=== PATIENT | male | born 1960 | race Two or more races ===

== ENCOUNTER 2016-08-02 23:33 | Emergency (ER) | payer OTHER ==
[~2016-08-02] VITALS: Ht 182.9 cm; Wt 75.0 kg
[~2016-08-02 23:33] MED LIST: FEXO180 PO; PROP20 PO; ZEGE20CA PO
[2016-08-02 23:38] VITALS: BP 168/98; PULSE 77; RESP 14; TEMP 99.1; O2SAT 99
--- NOTE | 2016-08-02 23:41 | PD ---
HPI Chief Complaint: Laceration/Skin Injury Time Seen by Provider: 23:41 Travel History International Travel<30 days: No Contact w/Intl Traveler<30days: No Traveled to known affect area: No History of Present Illness HPI 55-year-old right handed male presents to emergency department for evaluation of a laceration to his left third digit. Patient states that he was cutting meat with a porcelain knife when he left, placing his finger. Denies any significant pain. Denies any limitations range of motion or alterations in sensation. He is uncertain of his tetanus status. He has no other symptoms to report. [facility] Past Medical History Medical History: Denies Significant Hx Social History Alcohol Use: Yes Tobacco Use: No Substance Use: No Allergies-Medications (Allergen,Severity, Reaction): Coded Allergies: No Known Allergies (Unverified , 08/02/16) Reported Meds & Prescriptions Reported Meds & Active Scripts Active Keflex (Cephalexin) 500 Mg Cap 500 Mg PO Q6H 5 Days Reported Zegerid Otc (Omeprazole/Sodium Bicarbonate) 20 Mg Cap 20 Mg PO DAILY Ale Allergy (Fexofenadine Hydrochloride) 180 Mg Tab 180 Mg PO DAILY Inderal (Propranolol HCl) 20 Mg Tab 20 Mg PO TID Review of Systems Except as stated in HPI: all other systems reviewed are Neg Physical Exam Narrative GENERAL: Well-nourished, well-developed male patient, ambulatory and in no acute distress SKIN: Focused skin assessment warm/dry. 4 cm laceration along the lateral aspect of the left third digit. Patient has full flexion and extension of the left third digit. Sensation intact distal affected digit. Cap refill within normal limits. HEAD: Normocephalic. Atraumatic EYES: No scleral icterus. No injection or drainage. NECK: Supple, trachea midline. No JVD or lymphadenopathy. CARDIOVASCULAR: Regular rate and rhythm without murmurs, gallops, or rubs. RESPIRATORY: Breath sounds equal bilaterally. No accessory muscle use. MUSCULOSKELETAL: No cyanosis, or edema. Data Data Last Documented VS Vital Signs Date Time Temp Pulse Resp B/P Pulse Ox O2 Delivery O2 Flow Rate FiO2 08/02/16 23:38 99.1 77 14 168/98 99 Room Air Orders Lidocaine 2% Inj (Xylocaine 2% Inj) (08/02/16 23:45) [facility] Medical Decision Making Medical Screen Exam Complete: Yes Emergency Medical Condition: Yes Medical Record Reviewed: Yes Differential Diagnosis Laceration superficial versus deep versus tendon injury Narrative Course 55-year-old male presents to the emergency department for evaluation a laceration to the left third digit. Patient has no limitations in range of motion. Sensation remains intact. Patient has requested not to follow through with x-ray secondary to expense concern. The wound is irrigated and approximated without difficulty. Patient is requesting to receive his tetanus vaccination through his primary care provider because our registration is unable to provide him with an estimated cost for that at this time. The patient seems reliable and does have a primary care provider that he can follow- up with and I feel that this is reasonable. He is counseled on care and agrees to return immediately with any acute worsening symptoms. Procedures Procedure Narrative LACERATION LOCATION: Left third digit LENGTH: 4 cm NUMBER OF STITCHES/BRANDON: 7 sutures REPAIR: The area of the laceration was prepped with Betadine and sterilely draped. The laceration was infiltrated with 2% lidocaine without epinephrine. The wound was copiously irrigated and explored without evidence of foreign body , tendon injury or neurovascular injury. The wound was closed using 4-0 Prolene suture. This was a single layer repair. A sterile dressing was applied. The patient was advised to keep the dressing clean and dry. Patient tolerated the procedure well. Diagnosis Primary Impression: Laceration of finger of left hand Qualified Code: S61.219A - Laceration of finger of left hand, initial encounter Referrals: Hand Surgeon Primary Care Physician Patient Instructions: Finger Laceration (ED), General Instructions Additional Instructions: Keep the area clean and dry Elevate to reduce pain and swelling Wear the brace to limit mobility and tail sutures are removed Sutures are to be removed in 7-10 days. This can be done emergency department by your primary care provider's office Tetanus vaccination is recommended Tylenol and/or ibuprofen as structural effect as needed for pain Return immediately with any acute worsening of symptoms Med/Other Pt SpecificInfo: Prescription(s) given Scripts Cephalexin (Keflex)500 Mg [id number] Mg PO Q6H 5 Days Ref 0 Prov:Madalyn Peralta 08/03/16 Disposition: 01 DISCHARGE HOME Condition: Stable Madalyn Peralta August 02, 2016 23:41
[2016-08-02] MEDS ORDERED: LIDOCAINE HCL 2% 20 ML VIAL INFIL ONE (23:45)
[2016-08-03] MEDS ORDERED: CEPH-460 PO (00:29)
== END 2016-08-03 00:44 | disposition home or self-care (01) ==
LOC: NEPK 23:33
DX: S61.213A Laceration without foreign body of left middle finger without damage to nail, initial encounter (principal); W26.0XXA Contact with knife, initial encounter; Y93.G3 Activity, cooking and baking; Y92.000 Kitchen of unspecified non-institutional (private) residence as the place of occurrence of the external cause
CPT/HCPCS: 12002

== ENCOUNTER 2017-08-05 07:46 | Day surgery (SDC) | payer OTHER ==
[~2017-08-05] VITALS: Ht 185.4 cm; Wt 88.4 kg
[~2017-08-05 07:46] MED LIST changes: +CEPH-460 PO
[2017-08-05] MEDS ORDERED: IOHEXOL 350 MG/ML 50 ML BTL (for Cath Lab) OTHER ONE (07:47)
[2017-08-05] MEDS ORDERED: DICY10 PO (08:41)
[2017-08-05] MEDS ORDERED: FLUT1SPR5 EACH NARE (08:41)
[2017-08-05] MEDS ORDERED: ZINC50TA2 PO (08:41)
[2017-08-05] MEDS ORDERED: CETI10 (08:41)
[2017-08-05] MEDS ORDERED: TIRO25CA PO (08:41)
[2017-08-05] MEDS ORDERED: ZANT150T2 PO (08:41)
[2017-08-05] MEDS ORDERED: [UNRECOGNIZED DRUG - OTHER] (08:41)
[2017-08-05] MEDS ORDERED: MAGN400C2 (08:41)
[2017-08-05] MEDS ORDERED: ALPR1TAB3 PO (08:41)
[2017-08-05] MEDS ORDERED: VITA200C3 PO (08:41)
[2017-08-05] MEDS ORDERED: MOME16.7 INH (08:41)
[2017-08-05] MEDS ORDERED: [UNRECOGNIZED DRUG - CODE] (08:41)
[2017-08-05] MEDS ORDERED: ALBUAER3 INH (08:41)
[2017-08-05] MEDS ORDERED: CHOL5000 PO (08:41)
[2017-08-05] MEDS ORDERED: DULO1CAP2 PO (08:41)
[2017-08-05] MEDS ORDERED: PROP20TA3 PO (08:41)
[2017-08-05 08:43] VITALS: BP 158/91; PULSE 65; RESP 18; TEMP 98.2; O2SAT 96
[2017-08-05] MEDS ORDERED: HEPARIN SODIUM - IV 10,000 UNITS/10 ML VIAL ONE (10:32)
[2017-08-05] MEDS ORDERED: NITROGLYCERIN INJ 5 ML ONE (10:32)
[2017-08-05] MEDS ORDERED: VERAPAMIL HCL 5 MG/2 ML VIAL ONE (10:32)
[2017-08-05] MEDS ORDERED: HEPARIN-NS/PF FLUSH BAG 2,000 ML IV FLUSH ONE (10:32)
[2017-08-05] MEDS ORDERED: MIDAZOLAM HCL 2 MG/2 ML VIAL ONE (10:42)
[2017-08-05] MEDS ORDERED: MISC INFORMATION XX ONE (11:30)
[2017-08-05] MEDS ORDERED: ASPI81TA23 PO (11:31)
[2017-08-05] MEDS ORDERED: ATOR40TA16 PO (11:31)
--- NOTE | 2017-08-05 11:38 | CATHPROC ---
[facility] HIS Report Study Information Study Number Admission Scheduled Start Study Start [id number] Aug 05 2017 7:46AM 08/05/2017 Aug 05 2017 8:36AM [facility] Cardiac Catheterization Admit Source Facility Department Other [facility] - Executive Chairman Of The Board Physician and Clinical Staff Initial Harley Rossi Asphalt Mixing Machine Operator Gavino RN, Tab Recorder Hilary Gutierrez,RT(R) (BS) Scrub Jamee Calle ,RT(R) Procedures Performed Procedure Location (Site) Vessel Name Coronary Angiograms LCA Left Coronary Coronary Angiograms RCA Right Coronary Wire insertion Radial (right) Radial Art. Equipment Time Printer Slotter Operator Description Size Mfg Part Number Used/Scraped TRANSDUCER, TRUWAVE [id number] 08:38 TAMAYO SPARROW * Used W/STOCKCOCK *[id number] *[id number] *[id number] 08:38 [employer] INDUSTRIES PACK, CCL CUSTOM * Used *[id number] 08:38 Erenis SUPPORT, ARTERIAL ADULT [id number] *[id number] Used [id number] 08:38 [employer] PACER PEN, SKIN DUAL W/ RULER * Used *[id number] BAND, RADIAL COMPRESSION TR [id number] 11:26 [employer] MEDICAL 29CM Used LARGE 29 *[id number] SHEATH, FR6 RADIAL PRELUDE 08:38 Local [employer]utation FR 6 [id number] Used EASE 11CM [id number] 08:38 [employer] WIRE, EXCHANGE 260CM 3MMJ 260CM Used *[id number] 08:38 [employer] OMNIPAQUE, 350 MG, 150ML 150ML [id number] Used [id number] 08:38 [employer] MEDICAL BLANKET,WARM AIR CCL * Used *[id number] History: Current Medications Medication Dosage/Unit Route Frequency Last Date/Time Taken Beta Kimberli History: Allergies Allergy Reaction No Known Allergies History: Risk Factors Family History of Hypertension Dyslipidemia Previous DC Previous Heart Failure Premature CAD Yes Yes Yes No No Prior Valve Prior PCI Prior CABG Surgery No No No Cerebrovascular Peripheral Artery Chronic Lung On Dialysis Diabetes Disease Disease Disease No No No No No History: Stress Tests Stress or Imaging Studies Performed Yes Standard Exercise Stress Test No Stress Echo No Stress Test SPECT Stress Test SPECT Result Stress Test SPECT Ischemia Risk/Extent Yes Positive Intermediate Stress Test CMR No Cardiac CTA Coronary Calcium Score No No History: Other Current Smoker Method Quit Packs a Day Years Used Pack Years No Cigarettes 1 Years Ago 1 10 10 Labs Hgb (g/dl) Hct (%) WBC (l/cumm) Platelets (thousands) 11.60-17.00 35.00-51.00 4.00-11.00 150.00-450.00 14.9 44.9 5.3 173 Glucose (mg/dl) BUN (mg/dl) Creatinine (mg/dl) BUN:Creatinine (1:x) 74.00-106.00 7.00-18.00 0.50-1.30 10.00-20.00 81 11 0.9 12.2 Na (meq/l) K (meq/l) 136.00-145.00 3.50-5.10 140 4.6 INR (PTT:PT) 0.90-1.10 1 CPK-MB (ng/ML) 0.50-3.60 Not Drawn Medication Medication Total Dose (Bolus/Oral) Medication Total Dosage/Unit 1% XYLOCAINE 1 mL FENTANYL 50 mcg HEPARIN 3000 units NTG (IC) 200 mcg VERSED 2 mg Medications (Bolus/Oral) Medication Time Given Dosage/Unit Administered By Reason VERSED 08/05/2017 10:59:28 AM 2 mg Tab Mancia RN 2 mg VERSED given in lab by Tab Mancia RN in Left Antecubital via Peripheral IV. FENTANYL 08/05/2017 11:00:38 AM 50 mcg Tab Mancia RN 50 mcg FENTANYL given in lab by Tab Mancia RN in Left Antecubital via Peripheral IV. 1% XYLOCAINE 08/05/2017 11:05:01 AM 1 mL Harley Montenegro 1 mL 1% XYLOCAINE given in lab by Harley Montenegro in Right Radial via Subcutaneous. HEPARIN 08/05/2017 11:06:18 AM 3000 units Tab Mancia RN 3000 units HEPARIN given in lab by Tab Mancia RN in Left Antecubital via Peripheral IV. NTG (IC) 08/05/2017 11:06:30 AM 200 mcg Harley Montenegro 200 mcg NTG (IC) given in lab by Harley Montenegro in Right Radial via Intra-arterial. Medication (Drip) Medication Time Given Dosage/Unit Concentration/Unit Diluent (ml) Solution IV Solutions 08/05/2017 10:35:33 AM 0 mL (IV) 500 NaCl .9 IV Solutions given in lab by Tab Mancia RN in Left Antecubital via Peripheral IV. Pump/Drip Flow = 30 ml/hr using NaCl .9. Initial Case Assessment Cardiovascular HR Rhythm NIBP Chest Pain 60 reg 117/80 0 Edema Present Skin color Skin None Normal Warm Dry Circulatory - Right Pulses Dorsalis Pedis Femoral Radial 2 2 1 Scale (0,1,2,3,4,d) Circulatory - Left Pulses Dorsalis Pedis Femoral Radial 2 2 Scale (0,1,2,3,4,d) Circulatory - Lower Extremities Color Lower Right Color Lower Left Normal Normal Neurological State Oriented to time-place- Alert Moves all extremities person Respiration - General Respiration Rate SpO2 (%) (B/min) 10 94 Chronological Log Time Study Chronological Log 10:35:12 Patient arrived via Bed. 10:35:13 Patient Name, D.O.B, / Armband Verified By R.N. 10:35:14 Consent signed by the physician and the patient and verified by the Executive Chairman Of The Board staff. 10:35:14 Pre-op and post- op instructions given; patient acknowledges understanding of instructions. 10:35:15 Verbal Stimulation=2 Physical Stimulation=2 Airway=2 Respiration=2 TOTAL=8. (0=absent, 1=li mited, 2=present) 10:35:16 Presedation assessment performed by Executive Chairman Of The Board RN. 10:35:20 Patient has been NPO for More than 6Hrs. 10:35:26 Allens test performed on the right radial and ulnar artery. 10:35:29 Skin Breakdown none per pt 10:35:29 Patient Warmer Placed on the Table. 10:35:31 Edmar Prominences Protected 10:35:32 A # 20 IV was noted in the Antecubital (left). Grade = 0 IV Solutions given in lab by Tab Mancia RN in Left Antecubital via Peripheral IV. Pump/Drip F low = 30 ml/hr using NaCl 10:35:33 .9. 10:35:33 History and physical on the chart or being dictated. Assessment: Initial Case, HR=60 BPM, Rhythm=reg, YBAY=857/80 mmhg, Chest Pain=0, Edema=None, [place]=Normal, Skin = Warm, Dry Right Pulses: Joe Ped=2, Femoral=2, Radial=1 Left Pulses: Joe Ped=2, Femoral=2 10:35:34 Lower Right Extremities: Color=Normal Lower Left Extremities: Color=Normal Neurological: State=Alert, Ox3, SALAZAR Respiration: Resp=10 B/min, SpO2=94 % Vitals capture started with the following parameters, Patient=Adult, Interval=5 min, Initial Pr kbpyly=102 mmHg, 10:42:04 Deflation Rate=5 mmHg, Cuff placed on Unknown 10:43:11 HR=60 bpm, ZPFD=291/80 mmhg, SpO2=99.0 %, Resp=6 B/min, Pain=0, Maverick=10, [place]=2 10:45:30 Reference ECG taken 10:47:37 HR=63 bpm, OICV=379/84 mmhg, SpO2=94.0 %, Resp=13 B/min, Pain=0, Maverick=10, [place]=2 10:52:40 HR=57 bpm, PWMD=736/85 mmhg, Resp=19 B/min, Pain=0, Maverick=10, [place]=2 10:53:45 Pressure channel 1 zeroed. 10:54:31 MD paged 10:57:39 HR=59 bpm, FUIF=153/89 mmhg, Resp=28 B/min, Pain=0, Maverick=10, [place]=2 10:58:29 MD arrived. 10:59:28 2 mg VERSED given in lab by Tab Mancia RN in Left Antecubital via Peripheral IV. 11:00:38 50 mcg FENTANYL given in lab by Tab Mancia RN in Left Antecubital via Peripheral IV. 11:02:42 HR=67 bpm, STXW=792/72 mmhg, SpO2=96.0 %, Resp=13 B/min, Pain=0, Maverick=10, [place]=2 Time Out. Correct patient, correct procedure, correct physician, power injector not loaded with contrast with surgical 11:04:47 team present. Time Out Concurred by MD and individual staff in procedure. 11:04:56 Case Start 11:05:01 1 mL 1% XYLOCAINE given in lab by Harley Montenegro in Right Radial via Subcutaneous. 11:05:38 Access site was right Radial Artery. A SHEATH, FR6 RADIAL PRELUDE EASE 11CM FR 6 was advanced into the Radial (right) using the Perc utaneous 11:05:48 technique. 11:06:01 In the Radial (right) the SHEATH, FR6 RADIAL PRELUDE EASE 11CM FR [address] by Harley Montenegro. 11:06:18 3000 units HEPARIN given in lab by Tab Mancia RN in Left Antecubital via Peripheral IV. 11:06:30 200 mcg NTG (IC) given in lab by Harley Montenegro in Right Radial via Intra-arterial. A JR 5.0 INFINITI CATHETER FR 5 was advanced over a wire. OMNIPAQUE, 350 MG, 150ML 150ML was us ed for 11:07:00 injections. 11:07:41 HR=68 bpm, SFXE=862/72 mmhg, Resp=24 B/min, Pain=0, Maverick=10, [place]=2 11:07:49 The RCA was injected and visualized at various angles. OMNIPAQUE, 350 MG, 150ML 150ML used . After removing the current catheter a JL 3.5 INFINITI CATHETER FR 5 was advanced over a WIRE, E XCHANGE 260CM 11:09:00 3MMJ 260CM. Recorded Pressure: Ao, HR=64, Condition=Condition 1 11:10:34 (Aorta) Ao 99/62/78 11:11:23 The LCA was injected and visualized at various angles. OMNIPAQUE, 350 MG, 150ML 150ML used . 11:12:42 HR=64 bpm, PMKW=064/69 mmhg, SpO2=95.0 %, Resp=12 B/min, Pain=0, Maverick=10, [place]=2 11:18:04 A WIRE, EXCHANGE 260CM 3MMJ 260CM was inserted via Radial (right). 11:18:20 HR=69 bpm, HCVM=611/71 mmhg, SpO2=98.0 %, Resp=15 B/min, Pain=0, Maverick=10, [place]=2 11:19:07 Catheter was removed 11:19:10 Wire removed 11:22:36 SM reviewing films with CV surgeon SK 11:22:42 HR=60 bpm, FVDT=644/70 mmhg, Resp=8 B/min, Pain=0, Maverick=10, [place]=2 11:25:32 Case End 11:26:11 Catheter(s) removed without difficulty 11:26:20 No case complications noted. 11:26:23 Bedside Report will be given. 11:27:41 HR=64 bpm, KMQQ=507/76 mmhg, SpO2=98.0 %, Resp=21 B/min, Pain=0, Maverick=10, [place]=2 11:28:15 DOCU called. Spoke to Yajaira. Radial Compression Device Used. 10 mLs of air placed in BAND, RADIAL COMPRESSION TR LARGE 29 2 9CM. Affected 11:28:53 hand 98 % O2 saturation. 11:32:31 Vitals capture stopped. 11:37:53 Patient moved to stretcher End Study - Contrast Media Used In Study Contrast Total Opened (mL) Total Used (mL) Total Wasted (mL) Omnipaque 30 30 0 End Study - Maximum Contrast Load Max Contrast Load (mL) 491.2 End Study - Radiation Exposure Fluoro Time (minutes) 1.6 End Study - Sheaths Sheaths Pulled By Sheath Hold Time (min) Jamee Calle End Study - Patient Disposition Complications Transferred To Interventional Outcome No Executive Chairman Of The Board Holding No attempt made
--- NOTE | 2017-08-05 12:10 | MA ---
cc: Harley Montenegro MD DATE: 08/05/2017 INDICATIONS: Chest pain, abnormal stress test. PROCEDURE PERFORMED: 1. Fluoroscopy with interpretation. 2. Coronary angiography. METHOD: The risks, benefits and alternatives discussed with the patient. The patient understood and consented to the procedure. PROCEDURE: The patient brought into the catheterization lab and placed on the catheterization tale. The right wrist was prepped and draped in the usual sterile fashion. The right wrist was anesthetized with 2% lidocaine. The right radial artery was cannulated and a 6-Turkmen 11 cm sheath was placed without difficulty. CORONARY ANGIOGRAPHY: 1. Left main coronary is angiographically normal. 2. Left anterior descending coronary artery in the proximal segment has mild luminal irregularities. There is a small first diagonal branch which has 80% stenosis, but is a 1 mm caliber size. The mid left anterior descending coronary just prior to the bifurcation of a moderate sized second diagonal branch has a 75% stenosis in it. Diagonal branch is free of significant disease. The distal left anterior descending coronary also has a lesion in it at the bifurcation just distal to the diagonal branches, although it gives rise to septal perforators, it is not a very large caliber size with a stenosis of 70%. 3. Left circumflex gives rise to an obtuse marginal branch with a smaller caliber sized vessel in the proximal circumflex, 90% stenosis. 4. Right coronary has diffuse disease in the proximal and the mid to distal segment of 90%. Posterior descending branch has moderate diffuse disease. Posterolateral branch has minor luminal irregularities. CONCLUSIONS: Multivessel coronary disease. PLAN: I actually discussed the case with Dr. Horta of cardiothoracic surgery to see if both the distal left anterior descending and obtuse marginal branches are bypassable. Dr. Horta felt confident that he could potentially graft both vessels. Given that, I think we could get a better full revascularization with consideration for bypass surgery versus multivessel PCI. At this point, we will stop, put a radial band on and anticipate he will go home today and schedule potential elective bypass surgery as an outpatient. Harley Montenegro MD LON/DL , 11:34 AM , 12:09 PM
--- NOTE | 2017-08-05 16:38 | MB ---
cc: Joanna Shearer Jacqueline R ARNP DATE: 08/05/2017 DATE OF : 1960 HISTORY OF PRESENT ILLNESS: A 56-year-old male with history of coronary artery disease, underwent heart catheterization 8 years ago, found to have a 50% stenosis in the main artery, had followup that was done by Dr. Castillo, had followup with Dr. Montenegro because of his family history, his mother had stents in the past. He was followed in the past by also Dr. Castillo. He has failed statin therapy due to severe myalgias. He underwent nuclear stress testing which showed greater than 2 mm horizontal downsloping inferior leads which would be a positive stress test, also moderate-sized reversible perfusion in the mid-basilar inferior wall. EF was 56% on that stress test. He underwent cardiac catheterization with Dr. Montenegro which showed an EF of 60%. The proximal LAD was 30%, the mid-distal 75%, the diagonal 20%, the circ was 20%, the OM 90% and the RCA 80%. We were consulted to evaluate for coronary artery bypass grafting. PAST MEDICAL HISTORY: Includes coronary artery disease, hyperlipidemia with statin intolerance, palpitations, hypertension, irritable bowel syndrome, benign prostatic hypertrophy. PAST SURGICAL HISTORY: Colonoscopy, hemorrhoidectomy. HOME MEDICATIONS: Xanax, Asmanex, Bentyl, Zyrtec, Prozac, Flonase and Inderal and Zantac. HABITS: Prior tobacco abuse. FAMILY HISTORY: Mother had history of coronary artery disease with stents. Father from pancreatic cancer. SOCIAL HISTORY: The patient is , no children. Smoked for 15 years, quit 5 years ago. Owns a food store. Originally from [place]. REVIEW OF SYSTEMS: GENERAL: No night sweats, fever, heat or cold intolerance. SKIN: No psoriasis, itching or hives. HEENT: No blurred vision, hearing loss. RESPIRATORY: He has had some pinching type discomfort in his chest that was more like indigestion. GASTROINTESTINAL: He does suffer from irritable bowel syndrome. GENITOURINARY: No burning, frequency, urgency. PLATE MILL MILL HAND: No history of TIA, CVA or seizure disorder. ENDOCRINOLOGY: No diabetes and no hypothyroidism. PHYSICAL EXAMINATION: VITAL SIGNS: Blood pressure 150/90, heart rate is 60, temperature T-max 98.2, on room air 95%. GENERAL: Awake, alert, in no acute distress. HEENT: Head is normocephalic, atraumatic. Pupils equal and reactive. Oral mucosa pink, moist. NECK: Supple. No JVD. HEART: Sounds S1, S2. Regular rate and rhythm. No audible rubs, murmurs, gallops. LUNGS: Clear to auscultation. No wheezes, rales or rhonchi. ABDOMEN: Soft, nontender, no masses or organomegaly. RECENT LABORATORY DATA: Shows hemoglobin of 14, hematocrit of 44, white cell count of 5.3, platelet count of 173. Sodium 140, potassium 4.6, BUN of 11 and a creatinine of 0.9. INR 1.04. IMPRESSION: This is a 56-year-old male with multivessel disease. PLAN: At this time, the patient wanted to speak further with Dr. Montenegro in regards to possible stenting and also speaking to Dr. Castillo, his prior pack room operator. At this time we have given the patient our card that he is very welcome to call us should he consider undergoing coronary artery bypass grafting and we will work up at that time. The procedure, alternatives and risks have been discussed with the patient. STS has not been done at this time, unless the patient decides to have surgery. We will follow accordingly. Joanna Shearer [facility] MD TERA [place]/IVAN , 04:05 PM , 04:37 PM
--- NOTE | 2017-08-07 11:55 | EKG ---
Date Performed: 08/05/2017 Time Performed: 08:45:26 PTAGE: 56 years EKG: Sinus rhythm . Normal ECG NO PREVIOUS TRACING DOCTOR: Harley Montenegro Interpretating Date/Time 08/07/2017 11:55:01
== END 2017-08-05 15:12 | disposition home or self-care (01) ==
LOC: HDOC 07:46 → HDIC 07:47 → HDOC 15:12
PROVIDERS: ATTEND Internal Medicine
DX: I25.10 Atherosclerotic heart disease of native coronary artery without angina pectoris (principal); R94.39 Abnormal result of other cardiovascular function study; I10 Essential (primary) hypertension; E78.5 Hyperlipidemia, unspecified
CPT/HCPCS: 86850; 86900; 86901; 93005; 93454; 99152; 99153; C1769; C1893; J1644; J2250; J3010; Q9967

== ENCOUNTER 2017-08-09 09:13 | Day surgery (SDC) | payer OTHER ==
[~2017-08-09] VITALS: Ht 185.4 cm; Wt 82.1 kg
[2017-08-09] VITALS (9 sets, daily range): BP systolic 118–131; BP diastolic 81–85; PULSE 60–79; RESP 14–20; TEMP 96.8–98.2; O2SAT 98–100
[~2017-08-09 09:13] MED LIST changes: +ALBUAER3 INH; +ALPR1TAB3 PO; +ASPI81TA23 PO; +ATOR40TA16 PO; -CEPH-460 PO; +CETI10; +CHOL5000 PO; +DICY10 PO; +DULO1CAP2 PO; -FEXO180 PO; +FLUT1SPR5 EACH NARE; +MAGN400C2; +MOME16.7 INH; -PROP20 PO; +PROP20TA3 PO; +TIRO25CA PO; +VITA200C3 PO; +ZANT150T2 PO; -ZEGE20CA PO; +ZINC50TA2 PO; +[UNRECOGNIZED DRUG - CODE]; +[UNRECOGNIZED DRUG - OTHER]
[2017-08-09] MEDS ORDERED: IOHEXOL 350 MG/ML 50 ML BTL (for Cath Lab) OTHER ONE (09:14)
[2017-08-09] MEDS ORDERED: IOHEXOL 350 MG/ML 100 ML BTL (for Cath Lab) OTHER ONE (09:14)
[2017-08-09] MEDS ORDERED: NS 1000P @30 MLS/HR (KVO) IV SCH (10:00)
[2017-08-09] MEDS ORDERED: FAMO1TAB73 PO (10:50)
[2017-08-09] MEDS ORDERED: NITR0.4S SL (10:50)
[2017-08-09] MEDS ORDERED: MIDAZOLAM HCL 2 MG/2 ML VIAL ONE ×3 (11:42→12:19)
[2017-08-09] MEDS ORDERED: BIVALIRUDIN 250 MG VIAL ONE (11:49)
[2017-08-09] MEDS ORDERED: NITROGLYCERIN INJ 10 ML ONE (12:43)
[2017-08-09] MEDS ORDERED: BIVALIRUDIN INJ 250 MG in SODIUM CHLORIDE 0.9% INJ 50 ML IV SCH (12:47)
[2017-08-09] MEDS ORDERED: SODIUM CHLOR 0.9% 1000 ML INJ 1,000 ML IV SCH (12:47)
[2017-08-09] MEDS ORDERED: ATOR40TA16 PO (12:52)
[2017-08-09] MEDS ORDERED: PLAV75TA29 PO (12:53)
[2017-08-09] MEDS ORDERED: ASPI81TA23 PO (12:53)
[2017-08-09] MEDS ORDERED: ISOS30TA3 PO (12:54)
[2017-08-09] MEDS ORDERED: oxyCODONE/ACETAMINOPHEN 5 MG/325 MG TAB PO PRN (13:00)
[2017-08-09] MEDS ORDERED: CLOPIDOGREL 300 MG TAB PO ONE (13:00)
[2017-08-09] MEDS ORDERED: ALPRAZolam 1 MG TAB PO PRN (13:00)
[2017-08-09] MEDS ORDERED: LIDOCAINE 2% JELLY 30 ML TUBE TOP PRN (13:00)
[2017-08-09] MEDS ORDERED: BACITRACIN OINT 0.9 GM PKT TOP ONE (13:00)
[2017-08-09] MEDS ORDERED: MISC INFORMATION XX ONE (13:00)
[2017-08-09] MEDS ORDERED: ACETAMINOPHEN 325 MG TAB PO PRN (13:00)
--- NOTE | 2017-08-09 13:05 | CATHPROC ---
[employer] HIS Report Study Information Study Number Admission Scheduled Start Study Start [id number] Aug 09 2017 9:13AM 08/09/2017 Aug 09 2017 10:32AM [place] Service Cardiac Catheterization Admit Source Facility Department Other [facility] - Surveying Crew Stake Runner Physician and Clinical Staff Initial Harley Rossi Tile Edger Regina Reyes,HEENA Tile Edger Radha Waterman,HEENA Recorder Esteban Ruelas,HEENA Recorder Sonal Baer,RT(R) Scrub Kvng, Sofi,STAFF ATTORNEY TECH2 Procedures Performed Procedure Location (Site) Vessel Name Coronary Angiograms LCA Left Coronary Coronary Angiograms RCA Right Coronary Drug Eluting Inflatio LAD Mid Left Coronary Drug Eluting Inflatio RCA Dist Right Coronary Drug Eluting Inflatio RCA Prox Right Coronary L Heart Cath PTCA LAD Mid Left Coronary Wire insertion Radial (right) Radial Art. Equipment Time Panel Gluer Description Size Mfg Part Number Used/Scraped COPILOT VALVE, BLEEDBACK [id number] 11:31 [employer] Used CONTROL *[id number] TRANSDUCER, TRUWAVE [id number] 11:31 [employer] * Used W/STOCKCOCK *[id number] BALLOON, 2.25 20MM GA 12:40 [employer] 2.25 20MM Used QUANTUM APEX MR *[id number] [phone] *[id number] [phone] *[id number] 11:31 [employer] PACK, CCL CUSTOM * Used *[id number] 11:31 [employer]ge PACER PEN, SKIN DUAL W/ RULER * Used *[id number] 12:30 [employer] BALLOON, 2.0 X 20MM EUPHORA 20MM Used *[id number] 12:28 [employer] STENT, 2.5 38MM OCTAVIA 2.5 38MM [id number] Used [id number] 12:08 [employer] STENT, 3.0 26MM OCTAVIA 3.0 26MM Used *[id number] 12:11 [employer] STENT, 3.0 34MM OCTAVIA 3.0 34MM [id number] Used 12:19 [employer] STENT, 3.0 34MM OCTAVIA 3.0 34MM [id number] Used [id number] 12:12 [employer] 30 JUVENAL INDEFLATOR Used *[id number] BAND, RADIAL COMPRESSION TR [id number] 12:47 [employer] MEDICAL 29CM Used LARGE 29 *[id number] 11:31 [employer] MEDICAL SHEATH, FR6.5 PRELUDE 11CM FR 6.5 038ACT Used *[id number] 11:31 [employer] MEDICAL WIRE, 3MMJ .035 180CM 180CM Used *[id number] 11:31 NAMIC MANIFOLD, 4 PORT * Used *[id number] 11:31 [employer] OMNIPAQUE, 350 MG, 150ML 150ML [id number] Used [id number] 11:31 [facility] BLANKET,WARM AIR CCL * Used *[id number] WIRE, RUNTHROUGH NS FLOPPY [id number] 12:06 [employer]car.[employer] 180CM Used .014 180CM *[id number] Equipment Model, Serial, Lot Number and Expiration Data Description Model Number Serial Number Lot Number Expiration Date BALLOON, 2.0 X 20MM EUPHORA [id number] 12-10-2018 STENT, 2.5 38MM OCTAVIA [id number] 05-09-2019 STENT, 3.0 26MM OCTAVIA [id number] 04-28-2019 STENT, 3.0 34MM OCTAVIA [id number] 04-22-2019 STENT, 3.0 34MM OCTAVIA [id number] 04-18-2019 History: Current Medications Medication Dosage/Unit Route Frequency Last Date/Time Taken Beta Kimberli ASA History: Allergies Allergy Reaction No Known Allergies History: Risk Factors Family History of Hypertension Dyslipidemia Previous OR Previous Heart Failure Premature CAD Yes Yes Yes No No Prior Valve Prior PCI Prior CABG Surgery No No No Cerebrovascular Peripheral Artery Chronic Lung On Dialysis Diabetes Disease Disease Disease No No No No No History: Symptoms/Diagnosis Selection Items Chest pain History: Stress Tests Stress or Imaging Studies Performed Yes Standard Exercise Stress Test No Stress Echo No Stress Test SPECT Stress Test SPECT Result Stress Test SPECT Ischemia Risk/Extent Yes Positive Intermediate Stress Test CMR No Cardiac CTA Coronary Calcium Score No No History: Other Current Smoker Method Quit Packs a Day Years Used Pack Years No Cigarettes 1 Years Ago 1 10 10 Labs Hgb (g/dl) Hct (%) RBC (MIL/MM3) WBC (l/cumm) Platelets (thousands) 11.60-17.00 35.00-51.00 4.00-5.90 4.00-11.00 150.00-450.00 14.9 44.9 5.1 5.3 173 Glucose (mg/dl) BUN (mg/dl) Creatinine (mg/dl) BUN:Creatinine (1:x) 74.00-106.00 7.00-18.00 0.50-1.30 10.00-20.00 81 11 0.9 12.2 Na (meq/l) K (meq/l) 136.00-145.00 3.50-5.10 140 4.6 INR (PTT:PT) 0.90-1.10 1 CPK-MB (ng/ML) 0.50-3.60 Not Drawn Medication Medication Total Dose (Bolus/Oral) Medication Total Dosage/Unit 1% XYLOCAINE 5 mL ANGIOMAX BOLUS 13 mL FENTANYL 125 mcg NTG (IC) 700 mcg OXYGEN 2 l/min PLAVIX 600 mg VERSED 5 mg Medications (Bolus/Oral) Medication Time Given Dosage/Unit Administered By Reason VERSED 08/09/2017 11:50:50 AM 2 mg Amy, Regina 2 mg VERSED given in lab by Regina Reyes RN in Left Antecubital via Peripheral IV. Ordered by Harley Jose. FENTANYL 08/09/2017 11:51:18 AM 50 mcg Ankush Reyeson 50 mcg FENTANYL given in lab by Regina Reyes RN in Left Antecubital via Peripheral IV. Ordered by Harley Montenegro. 1% XYLOCAINE 08/09/2017 11:59:15 AM 5 mL Harley Montenegro 5 mL 1% XYLOCAINE given in lab by Harley Montenegro in Right Radial via Subcutaneous. VERSED 08/09/2017 12:00:50 PM 2 mg Hesher, Regina 2 mg VERSED given in lab by Regina Reyes RN in Left Antecubital via Peripheral IV. Ordered by Harley Jose. NTG (IC) 08/09/2017 12:01:26 PM 200 mcg Harley Montenegro 200 mcg NTG (IC) given in lab by Harley Montenegro in Right Radial via Intra-coronary. FENTANYL 08/09/2017 12:01:27 PM 50 mcg Amy, Regina 50 mcg FENTANYL given in lab by Regina Reyes RN in Left Antecubital via Peripheral IV. Ordered by Harley Montenegro. ANGIOMAX BOLUS 08/09/2017 12:03:51 PM 13 mL Regina Reyes 13 mL ANGIOMAX BOLUS given in lab by Regina Reyes RN in Left Antecubital via Peripheral IV. Ordere d by Harley Montenegro. OXYGEN 08/09/2017 12:04:10 PM 2 l/min Regina Reyes 2 l/min OXYGEN given in lab by Regina Reyes RN via Nasal. Ordered by Harley Montenegro. VERSED 08/09/2017 12:20:55 PM 1 mg Regina Reyes 1 mg VERSED given in lab by Regina Reyes RN in Left Antecubital via Peripheral IV. Ordered by Harley Jose. FENTANYL 08/09/2017 12:21:30 PM 25 mcg Regina Reyes 25 mcg FENTANYL given in lab by Regina Reyes RN in Left Antecubital via Peripheral IV. Ordered by Harley Montenegro. NTG (IC) 08/09/2017 12:21:56 PM 200 mcg Harley Montenegro 200 mcg NTG (IC) given in lab by Harley Montenegro in Right Radial via Intra-coronary. Ordered by Harley Montenegro. NTG (IC) 08/09/2017 12:36:32 PM 100 mcg Harley Montenegro 100 mcg NTG (IC) given in lab by Harley Montenegro in Right Radial via Intra-coronary. Ordered by Harley Montenegro. NTG (IC) 08/09/2017 12:42:40 PM 200 mcg Harley Montenegro 200 mcg NTG (IC) given in lab by Harley Montenegro in Right Radial via Intra-coronary. Ordered by Harley Montenegro. PLAVIX 08/09/2017 12:52:04 PM 600 mg Radha Waterman 600 mg PLAVIX given in lab by Radha Waterman, HEENA via Oral. Ordered by Harley Montenegro. Medication (Drip) Medication Time Given Dosage/Unit Concentration/Unit Diluent (ml) Solution ANGIOMAX DRIP 08/09/2017 12:04:15 PM 1.749 mg/kg/hr 250 mg 50 NaCl .9 1.749 mg/kg/hr ANGIOMAX DRIP given in lab by Regina Reyes RN in Left Antecubital via Peripheral IV . Pump/Drip Flow = 31 ml/hr using NaCl .9 with a concentration of 250 mg in 50 ml. Ordered by Harley Montenegro. Initial Case Assessment Cardiovascular HR Rhythm NIBP Chest Pain 62 SR 130/87 0 Edema Present Skin color Skin None Normal Warm Dry Circulatory - Right Pulses Dorsalis Pedis Femoral 2 2 Scale (0,1,2,3,4,d) Circulatory - Left Pulses Dorsalis Pedis Femoral 2 2 Scale (0,1,2,3,4,d) Neurological State Oriented to time-place- Alert Moves all extremities person Respiration - General Respiration Rate SpO2 (%) (B/min) 8 100 Chronological Log Time Study Chronological Log 11:28:59 Patient arrived via Bed. 11:29:00 Patient Name, D.O.B, / Armband Verified By R.N. 11:29:06 Patient has been NPO for More than 6Hrs. 11:29:08 Skin Breakdown-, none per pt 11:29:16 Patient Warmer Placed on the Table. 11:34:58 Reference ECG taken Vitals capture started with the following parameters, Patient=Adult, Interval=5 min, Initial Pr tscora=758 mmHg, 11:35:48 Deflation Rate=5 mmHg, Cuff placed on Left Arm 11:36:49 HR=63 bpm, WUGR=951/83 mmhg, SpO2=99.0 %, Resp=9 B/min, Pain=0, [place]=10, [place]=2 11:38:59 [place] Prominences Protected Assessment: Initial Case, HR=62 BPM, Rhythm=SR, EQJG=716/87 mmhg, Chest Pain=0, Edema=None, Col or=Normal, Skin = Warm, Dry Right Pulses: Joe Ped=2, Femoral=2 11:39:02 Left Pulses: Joe Ped=2, Femoral=2 Neurological: State=Alert, Ox3, SALAZAR Respiration: Resp=8 B/min, IuT0=788 % 11:39:16 Bilateral groins prepped with 2% chlorhexidine, and draped after a 3 minute waiting time. 11:41:22 HR=62 bpm, GVCX=294/87 mmhg, MhZ7=531.0 %, Resp=8 B/min, Pain=0, Maverick=10, [place]=2 11:43:39 Pressure channel 1 zeroed. 11:46:25 HR=63 bpm, JCJI=604/74 mmhg, SpO2=95.0 %, Resp=13 B/min, Pain=0, Maverick=10, [place]=2 11:50:50 2 mg VERSED given in lab by Regina Reyes RN in Left Antecubital via Peripheral IV. Order ed by Harley Montenegro. 11:51:18 50 mcg FENTANYL given in lab by Regina Reyes RN in Left Antecubital via Peripheral IV. O rdered by Harley Montenegro. 11:51:22 HR=66 bpm, IYUZ=293/86 mmhg, SpO2=97.0 %, Resp=8 B/min 11:53:34 MD arrived. 11:56:25 HR=74 bpm, MXAF=186/90 mmhg, SpO2=98.0 %, Resp=15 B/min 11:57:40 A # 20 IV was noted in the Antecubital (left). Grade = 0 11:57:53 History and physical on the chart or being dictated. Time Out. Correct patient, correct procedure, correct physician, power injector not loaded with contrast with surgical 11:58:36 team present. Time Out Concurred by MD and individual staff in procedure. 11:59:13 Case Start 11:59:15 5 mL 1% XYLOCAINE given in lab by Harley Montenegro in Right Radial via Subcutaneous. 12:00:13 Access site was Right Radial Artery. 12:00:43 A SHEATH, FR6.5 PRELUDE 11CM FR 6.5 was advanced into the Radial (right) using the Percutan eous technique. 12:00:50 2 mg VERSED given in lab by Reigna Reyes RN in Left Antecubital via Peripheral IV. Order ed by Harley Montenegro. 12:01:22 HR=71 bpm, MPMV=677/86 mmhg, SpO2=96.0 %, Resp=13 B/min 12:01:26 200 mcg NTG (IC) given in lab by Harley Montenegro in Right Radial via Intra-coronary. 12:01:27 50 mcg FENTANYL given in lab by Regina Reyes RN in Left Antecubital via Peripheral IV. O rdered by Harley Montenegro. A JR 5.0 GUIDE CATHETER FR 6 was advanced over a wire. OMNIPAQUE, 350 MG, 150ML 150ML was used for 12:02:01 injections. Recorded Pressure: Ao, HR=73, Condition=Condition 1 12:03:30 (Aorta) Ao 106/69/87 12:03:45 A wire was inserted via Radial (right). 13 mL ANGIOMAX BOLUS given in lab by Regina Reyes RN in Left Antecubital via Peripheral IV. Ordered by Lan 12:03:51 Harley. 12:04:10 2 l/min OXYGEN given in lab by Regina Reyes RN via Nasal. Ordered by Harley Montenegro. 1.749 mg/kg/hr ANGIOMAX DRIP given in lab by Regina Reyes RN in Left Antecubital via Periphe ral IV. Pump/Drip 12:04:15 Flow = 31 ml/hr using NaCl .9 with a concentration of 250 mg in 50 ml. Ordered by James Montenegro 12:05:50 The RCA was injected and visualized at various angles. OMNIPAQUE, 350 MG, 150ML 150ML used . 12:06:02 A WIRE, RUNTHROUGH NS FLOPPY .014 180CM 180CM was inserted via Radial (right). 12:06:23 HR=72 bpm, AABT=366/68 mmhg, SpO2=92.0 %, Resp=11 B/min A STENT, 3.0 26MM OCTAVIA 3.0 26MM was advanced through a JR 5.0 GUIDE CATHETER FR 6 over a WIRE, 12:09:42 RUNTHROUGH NS FLOPPY .014 180CM 180CM. 12:10:08 Stent not deployed. Stent removed and intact. 12:11:24 HR=71 bpm, YBIY=352/75 mmhg, SpO2=95 %, Resp=15 B/min A STENT, 3.0 34MM OCTAVIA 3.0 34MM was advanced through a JR 5.0 GUIDE CATHETER FR 6 over a WIRE, 12:11:41 RUNTHROUGH NS FLOPPY .014 180CM 180CM. A STENT, 3.0 34MM OCTAVIA 3.0 34MM was deployed using a 30 JUVENAL INDEFLATOR at 14 atmospheres for 15 seconds in 12:11:56 the RCA Dist. 12:13:26 Delivery device removed A STENT, 3.0 26MM OCTAVIA 3.0 26MM was advanced through a JR 5.0 GUIDE CATHETER FR 6 over a WIRE, 12:15:43 RUNTHROUGH NS FLOPPY .014 180CM 180CM. A STENT, 3.0 26MM OCTAVIA 3.0 26MM was deployed using a 30 JUVENAL INDEFLATOR at 16 atmospheres for 10 seconds in 12:15:52 the RCA Dist. 12:16:23 HR=76 bpm, HIFB=035/76 mmhg, SpO2=96.0 %, Resp=19 B/min 12:17:26 Delivery device removed A STENT, 3.0 34MM OCTAVIA 3.0 34MM was advanced through a JR 5.0 GUIDE CATHETER FR 6 over a WIRE, 12:18:53 RUNTHROUGH NS FLOPPY .014 180CM 180CM. A STENT, 3.0 34MM OCTAVIA 3.0 34MM was deployed using a 30 JUVENAL INDEFLATOR at 18 atmospheres for 10 seconds in :19:52 the RCA Prox. 12:20:55 1 mg VERSED given in lab by Regina Reyes RN in Left Antecubital via Peripheral IV. Order ed by Harley Montenegro. 12:21:24 HR=75 bpm, JDKU=421/73 mmhg, SpO2=96 %, Resp=21 B/min 12:21:30 25 mcg FENTANYL given in lab by Regina Reyes RN in Left Antecubital via Peripheral IV. O rdered by Harley Montenegro. 12:21:56 200 mcg NTG (IC) given in lab by Harley Montenegro in Right Radial via Intra-coronary. Ordered by Harley Montenegro. 12:22:30 Wire removed After removing the current catheter a XBLAD 4.0 GUIDE CATHETER FR 6 was advanced over a WIRE, 3 MMJ .035 180CM 12:23:52 180CM. 12:25:24 The LCA was injected and visualized at various angles. OMNIPAQUE, 350 MG, 150ML 150ML used . 12:26:27 HR=81 bpm, DFJL=147/67 mmhg, SpO2=94 %, Resp=9 B/min 12:26:51 A WIRE, RUNTHROUGH NS FLOPPY .014 180CM 180CM was inserted via Radial (right). A STENT, 2.5 38MM OCTAVIA 2.5 38MM was advanced through a XBLAD 4.0 GUIDE CATHETER FR 6 over a WIR E, 12:28:35 RUNTHROUGH NS FLOPPY .014 180CM 180CM. 12:29:40 Stent not deployed. Stent removed and intact. A BALLOON, 2.0 X 20MM EUPHORA 20MM was inserted over WIRE, RUNTHROUGH NS FLOPPY .014 180CM 180C M via 12:31:16 the Radial (right). A BALLOON, 2.0 X 20MM EUPHORA 20MM over a WIRE, RUNTHROUGH NS FLOPPY .014 180CM 180CM in the LA D Mid 12:31:24 was inflated using a 30 JUVENAL INDEFLATOR at 11 juvenal for 16 sec. 12:31:26 HR=74 bpm, FNTP=514/70 mmhg, SpO2=94.0 %, Resp=10 B/min A BALLOON, 2.0 X 20MM EUPHORA 20MM over a WIRE, RUNTHROUGH NS FLOPPY .014 180CM 180CM in the LA D Mid 12:31:52 was inflated using a 30 JUVENAL INDEFLATOR at 11 juvenal for 15 sec. 12:32:46 Balloon Removed. A STENT, 2.5 38MM OCTAVIA 2.5 38MM was advanced through a XBLAD 4.0 GUIDE CATHETER FR 6 over a WIR E, 12:33:47 RUNTHROUGH NS FLOPPY .014 180CM 180CM. A STENT, 2.5 38MM OCTAVIA 2.5 38MM was deployed using a 30 JUVENAL INDEFLATOR at 14 atmospheres for 10 seconds in 12:35:02 the LAD Mid. 12:36:19 Delivery device removed 12:36:23 HR=77 bpm, CMIW=808/69 mmhg, SpO2=94.0 %, Resp=11 B/min 12:36:32 100 mcg NTG (IC) given in lab by Harley Montenegro in Right Radial via Intra-coronary. Ordered by Harley Montenegro. A BALLOON, 2.25 20MM NC QUANTUM APEX MR 2.25 20MM was inserted over WIRE, RUNTHROUGH NS FLOPPY .014 12:39:35 180CM 180CM via the Radial (right). A BALLOON, 2.25 20MM NC QUANTUM APEX MR 2.25 20MM over a WIRE, RUNTHROUGH NS FLOPPY .014 180CM 12:39:43 180CM in the LAD Mid was inflated using a 30 JUVENAL INDEFLATOR at 5 juvenal for 27 sec. A BALLOON, 2.25 20MM NC QUANTUM APEX MR 2.25 20MM over a WIRE, RUNTHROUGH NS FLOPPY .014 180CM 12:40:04 180CM in the LAD Mid was inflated using a 30 JUVENAL INDEFLATOR at 18 juvenal for 10 sec. A BALLOON, 2.25 20MM NC QUANTUM APEX MR 2.25 20MM over a WIRE, RUNTHROUGH NS FLOPPY .014 180CM 12:40:36 180CM in the LAD Mid was inflated using a 30 JUVENAL INDEFLATOR at 18 juvenal for 10 sec. 12:41:26 HR=70 bpm, JNAW=868/62 mmhg, SpO2=95 %, Resp=18 B/min 12:41:43 Balloon Removed. 12:41:55 Wire removed 12:42:40 200 mcg NTG (IC) given in lab by Harley Montenegro in Right Radial via Intra-coronary. Ordered by Harley Montenegro. 12:45:02 Catheter was removed 12:45:08 Case End 12:46:25 HR=69 bpm, YLZG=039/66 mmhg, SpO2=96 %, Resp=9 B/min Radial Compression Device Used. 13 mLs of air placed in BAND, RADIAL COMPRESSION TR LARGE 29 29 CM. Affected 12:46:25 hand 98 % O2 saturation. 12:47:02 No case complications noted. 12:47:03 Cine recording checked. 12:47:04 Holding Area notified of successful intervention. 12:47:07 Implantable Device card placed in patient's chart. 12:47:17 A Left Heart Cath was performed. 12:51:27 HR=67 bpm, ETBW=994/60 mmhg, SpO2=97.0 %, Resp=17 B/min 12:52:04 600 mg PLAVIX given in lab by Radha Waterman RN via Oral. Ordered by Harley Montenegro. 12:56:10 Vitals capture stopped. 12:56:45 Patient moved to [facility] End Study - Contrast Media Used In Study Contrast Total Opened (mL) Total Used (mL) Total Wasted (mL) Omnipaque 140 140 0 End Study - Maximum Contrast Load Max Contrast Load (mL) 492.2 End Study - Radiation Exposure Fluoro Time (minutes) 7.6 End Study - Patient Disposition Complications Transferred To Interventional Outcome No Telemetry Bed successful
--- NOTE | 2017-08-09 13:35 | MA ---
cc: Harley Montenegro MD DATE: 08/09/2017 HISTORY: This is a gentleman who underwent diagnostic coronary angiography earlier this week. We initially referred him for consideration of coronary bypass surgery, although percutaneous intervention was also an option. The patient discussed options with both myself in addition to family and friends and ultimately decided that a percutaneous approach would be better for him at this time. He is brought back now electively for 2-vessel intervention. PROCEDURES PERFORMED: 1. Fluoroscopy with interpretation. 2. Coronary angiography. 3. Percutaneous intervention with drug-eluting stents to the proximal and distal right coronary artery and mid to distal left anterior descending coronary artery. METHOD: The risks, benefits and alternatives were discussed with the patient. The patient understood and consented to the procedure. The patient was brought into the catheterization lab, placed on the catheterization table. The right wrist was prepped and draped in sterile fashion. The right wrist was anesthetized with 2% lidocaine. The right radial artery was cannulated and a 6-Senegalese, 7 cm sheath was placed without difficulty. CORONARY ANGIOGRAPHY: 1. Left main has mild luminal irregularities. 2. Left anterior descending coronary has 30% stenosis proximally, 80% of the mid to distal segment. There is also bifurcation of a second diagonal branch at the level of stenosis. 3. Circumflex is small caliber in size, moderate diffuse disease. 4. Right coronary has several tandem stenoses in the proximal and distal segments, about 75-80%. Posterior descending and posterolateral branches have mild to moderate diffuse disease. PERCUTANEOUS INTERVENTION: The right coronary was selectively engaged with a A 6-[place]egalese XB-RCA guide catheter. A 0.014-inch, 180-cm [employer] Runthrough wire was navigated down the distal posterolateral branch. A 2.5 x 30 mm RX Resolute [place] stent was then attempted to be deployed in the distal segment. Just as the stent deployment was initiated, the patient woke up and tried to sit up pulling the guide catheter back slightly. The stent then moved into the more mid-segment, now covering the entire mid to distal lesion. A second stent then was used, a 2.5 x 26 mm RX Resolute [place] stent to cover the distal segment with stent to overlap portion. Attention was then directed towards the proximal segment and a 3.0 x 34 mm RX Resolute [place] stent was then deployed. Repeat angiography showed no residual stenosis, TONA 3 flow. The posterolateral branch of the proximal segment did have some vasospasm. Nitroglycerin was given with subsequent improvement. Evaluation of the diagnostic films and first pictures today showed that the posterolateral branch did not have significant stenosis, suggested that this is related to vasospasm. The wire was removed, guide catheter removed. Attention was directed towards the left coronary system. Left anterior descending was selectively engaged with a 6-Senegalese XB-LAD 4.0 guide catheter. A 0.014-inch, 80 cm TerumSNOBSWAP wire was navigated down to the distal left anterior descending coronary artery. A 2.0 x 20 mm RX balloon was then advanced down and deployed with 2 sequential inflations in the mid-distal segment. Repeat angiography showed residual severe stenosis. In order to cover both the mid and the distal segment, we decided to use a 2.5 x 38 mm RX Resolute [place] stent which was deployed, then postdilated with a 2.25 x 20 mm RX NonCompliant balloon to 20 atmospheres. Repeat angiography after administration of nitroglycerin revealed no significant stenosis. Minimal plaque shifting into the first and second diagonal branches but widely patent TONA 3 flow. Wires were removed, guide catheter removed, HemoBand applied. CONCLUSIONS: Successful percutaneous intervention with drug-eluting stents to the right coronary artery and left anterior descending coronary artery. PLAN: The patient will be monitored closely for any post-procedural complications. The patient will be initiated on aspirin, Plavix, beta na, statin and long-acting nitrate. Anticipate discharge tomorrow if all goes well. MD LON Hoyos/SB , 01:01 PM , 01:34 PM
[2017-08-09] MEDS: DICYCLOMINE HCL 10 MG CAP PO SCH ×3 (14:00→20:27)
[2017-08-09] MEDS: PROPRANOLOL HCL 20 MG TAB PO SCH ×2 (15:23→20:26)
[2017-08-09] MEDS: FAMOTIDINE 20 MG TAB PO SCH (20:27)
[2017-08-09] MEDS: FLUTICASONE PROPIONATE 50 MCG/ACT 16 GM NASAL SPRAY EACH NARE SCH (20:28)
[2017-08-09] MEDS ORDERED: ATORVASTATIN 40 MG TAB PO SCH (21:00)
[2017-08-09] MEDS ORDERED: MOMETASONE INH SCH (21:00)
[2017-08-10] VITALS (12 sets, daily range): BP systolic 115–136; BP diastolic 70–84; PULSE 70–87; RESP 16–18; TEMP 97.4–98.4; O2SAT 97–99
[2017-08-10 05:36] LABS: AUTOMATED NEUTROPHIL # 4.4 TH/MM3 (1.8-7.7); BASOPHIL # 0.1 TH/MM3 (0-0.2); BASOPHIL % 0.7 % (0.0-2.0); EOSINOPHIL # 0.2 TH/MM3 (0-0.4); EOSINOPHIL % 3.3 % (0.0-4.0); HEMATOCRIT 40.8 % (39.0-51.0); HEMOGLOBIN 13.8 GM/DL (13.0-17.0); LYMPH % 29.6 % (9.0-44.0); LYMPHOCYTE # 2.2 TH/MM3 (1.0-4.8); MEAN CELL VOLUME 86.8 FL (80.0-100.0); MEAN CORPUSCULAR HEMOGLOBIN 29.4 PG (27.0-34.0); MEAN CORPUSCULAR HGB CONC 33.8 % (32.0-36.0); MEAN PLATELET VOLUME 8.6 FL (7.0-11.0); MONO % 7.8 % (0.0-8.0); MONOCYTE # 0.6 TH/MM3 (0-0.9); NEUT % 58.6 % (16.0-70.0); PLATELET COUNT 127 TH/MM3 (150-450); RED CELL DISTRIBUTION WIDTH 14.1 % (11.6-17.2); WHITE BLOOD COUNT 7.5 TH/MM3 (4.0-11.0)
[2017-08-10 06:00] LABS: CALCIUM 8.4 MG/DL (8.5-10.1); CREATININE 0.87 MG/DL (0.60-1.30)
[2017-08-10 06:03] LABS: CHOLESTEROL/ HDL RATIO 5.8 RATIO; HDL CHOLESTEROL 27.4 MG/DL (40.0-60.0)
[2017-08-10] MEDS: PROPRANOLOL HCL 20 MG TAB PO SCH (06:05)
--- NOTE | 2017-08-10 07:44 | PD.CARD.PN ---
Subjective Subjective Remarks Doing well no chest pain Objective Medications Current Medications Medications (Trade) Dose Ordered Sig/Pablo Route Start Time Stop Time Status Last Admin (Tylenol) 325 mg Q4H PRN PO 08/09/17 13:00 (Percocet 5-325 Mg) 1 tab Q4H PRN PO 08/09/17 13:00 (Aspirin Chew) 81 mg DAILY PO 08/10/17 09:00 (Plavix) 75 mg DAILY PO 08/10/17 09:00 (Xylocaine 2% Jelly) 1 applic UNSCH X1 PRN TOP 08/09/17 13:00 08/10/17 12:59 (Xanax) 1 mg Q6H PRN PO 08/09/17 13:00 08/09/17 20:47 (Vitamin D3) 5,000 units DAILY PO 08/10/17 09:00 (Bentyl) 10 mg QID PO 08/09/17 14:00 08/09/17 20:27 (Cymbalta Dr) 30 mg DAILY PO 08/10/17 09:00 (Inderal) 20 mg Q8HR PO 08/09/17 14:00 08/10/17 06:05 (Pepcid) 20 mg BID PO 08/09/17 21:00 08/09/17 20:27 (Flonase Josh Spr) 50 spray BID EACH NARE 08/09/17 21:00 Patient Own Medication PT OWN MED: (Mometas... BID INH 08/09/17 21:00 Future Hold (Vitamin E) 800 units DAILY PO 08/10/17 09:00 (Lipitor) 40 mg HS PO 08/09/17 21:00 08/09/17 20:27 Vital Signs / I&O Vital Signs Date Time Temp Pulse Resp B/P (MAP) Pulse Ox O2 Delivery O2 Flow Rate FiO2 08/10/17 07:04 97.4 87 16 115/70 (85) 99 08/10/17 07:04 Room Air 08/10/17 06:00 77 08/10/17 05:00 75 08/10/17 04:00 74 08/10/17 04:00 98.1 70 18 134/84 (101) 97 08/10/17 03:00 79 08/10/17 02:00 77 08/10/17 01:00 74 08/10/17 00:00 Room Air 08/10/17 00:00 98.4 71 18 136/84 (101) 97 08/10/17 00:00 71 08/09/17 23:00 76 08/09/17 22:00 79 08/09/17 21:00 75 08/09/17 20:00 77 08/09/17 20:00 Room Air 08/09/17 20:00 98.0 77 20 118/83 (95) 98 08/09/17 18:00 64 08/09/17 17:00 66 08/09/17 16:00 60 08/09/17 15:00 66 08/09/17 15:00 96.8 62 14 129/81 (97) 100 08/09/17 13:00 100 Room Air 08/09/17 10:28 98.2 67 18 131/85 (100) 99 I/O 08/09/17 08/09/17 08/09/17 08/10/17 08/10/17 08/10/17 07:00 15:00 23:00 07:00 15:00 23:00 Intake Total 900 ml Output Total 200 ml 1100 ml Balance -200 ml -200 ml Intake Oral 900 ml Output Urine Total 200 ml 1100 ml # Bowel Movements 0 Physical Exam Lungs clear RRR good pulse Laboratory Laboratory Tests Test 08/10/17 05:09 White Blood Count 7.5 TH/MM3 Red Blood Count 4.70 MIL/MM3 Hemoglobin 13.8 GM/DL Hematocrit 40.8 % Mean Corpuscular Volume 86.8 FL Mean Corpuscular Hemoglobin 29.4 PG Mean Corpuscular Hemoglobin Concent 33.8 % Red Cell Distribution Width 14.1 % Platelet Count 127 TH/MM3 Mean Platelet Volume 8.6 FL Neutrophils (%) (Auto) 58.6 % Lymphocytes (%) (Auto) 29.6 % Monocytes (%) (Auto) 7.8 % Eosinophils (%) (Auto) 3.3 % Basophils (%) (Auto) 0.7 % Neutrophils # (Auto) 4.4 TH/MM3 Lymphocytes # (Auto) 2.2 TH/MM3 Monocytes # (Auto) 0.6 TH/MM3 Eosinophils # (Auto) 0.2 TH/MM3 Basophils # (Auto) 0.1 TH/MM3 CBC Comment DIFF FINAL Differential Comment Blood Urea Nitrogen 9 MG/DL Creatinine 0.87 MG/DL Random Glucose 81 MG/DL Calcium Level 8.4 MG/DL Sodium Level 141 MEQ/L Potassium Level 3.7 MEQ/L Chloride Level 106 MEQ/L Carbon Dioxide Level 27.0 MEQ/L Anion Gap 8 MEQ/L Estimat Glomerular Filtration Rate 91 ML/MIN Total Creatine Kinase 137 U/L Triglycerides Level 197 MG/DL Cholesterol Level 159 MG/DL LDL Cholesterol 92 MG/DL HDL Cholesterol 27.4 MG/DL Cholesterol/HDL Ratio 5.80 RATIO Assessment and Plan Assessment and Plan OK to D/C F/U with Dr. Montenegro next week. RX for Plavix and atorvastatin written. Continue propanolol ans Gage Peterson MD August 10, 2017 07:44
[2017-08-10] MEDS: CHOLECALCIFEROL (VIT D3) 5000 UNIT CAP PO SCH ×2 (08:50→10:39)
[2017-08-10] MEDS: ASPIRIN 81 MG CHEW TAB PO SCH ×2 (08:50→10:43)
[2017-08-10] MEDS: FLUTICASONE PROPIONATE 50 MCG/ACT 16 GM NASAL SPRAY EACH NARE SCH (08:50)
[2017-08-10] MEDS: FAMOTIDINE 20 MG TAB PO SCH ×2 (08:51→10:39)
[2017-08-10] MEDS: DICYCLOMINE HCL 10 MG CAP PO SCH ×2 (08:51→10:39)
[2017-08-10] MEDS: DULoxetine HCl DR 30 MG CAP PO SCH ×2 (08:51→10:39)
[2017-08-10] MEDS: CLOPIDOGREL 75 MG TAB PO SCH ×2 (08:51→10:43)
[2017-08-10] MEDS ORDERED: VITAMIN E 400 UNIT CAP PO SCH (09:00)
[2017-08-10] MEDS ORDERED: NON-FORMULARY DRUG (Zinc Gluconate 50 MG) PO SCH (09:00)
--- NOTE | 2017-08-10 18:18 | EKG ---
Date Performed: 08/10/2017 Time Performed: 03:33:04 PTAGE: 56 years EKG: Sinus rhythm Normal ECG PREVIOUS TRACING : 08/05/2017 08.45 DOCTOR: Lyn Horn Interpretating Date/Time 08/10/2017 18:16:37
== END 2017-08-10 18:00 | disposition home or self-care (01) ==
LOC: HCAT 09:13 → HDIC 09:15 → HCIS 14:46 → HCAT 08-10 18:00
PROVIDERS: ATTEND Internal Medicine
DX: I25.10 Atherosclerotic heart disease of native coronary artery without angina pectoris (principal); I10 Essential (primary) hypertension; E78.5 Hyperlipidemia, unspecified
CPT/HCPCS: 80048; 80061; 82550; 85025; 86850; 86900; 86901; 92928; 92929; 93005; 93454; 99152; 99153; C1725; C1769; C1874; C1887; C1893; J0583; J2250; J3010; Q9967